=== PATIENT | female | born 1975 | race African-American/Black ===

== ENCOUNTER 2018-04-23 06:46 | Inpatient (IN) ==
[2018-04-23] MEDS ORDERED: HEPARIN/NACL 0.9% 2 UNITS/ML 2,000 ML IV ONE (09:02)
[2018-04-23] MEDS ORDERED: DIAZEPAM 5 MG TABLET PO ONE (09:37)
[2018-04-23] MEDS ORDERED: MIDAZOLAM 2 MG/2 ML VIAL IV ONE (09:37)
[2018-04-23] MEDS ORDERED: fentaNYL 100 MCG/2 ML VIAL IV ONE (09:37)
[2018-04-23 09:56] LABS: Basophils % 0.7 % (0.0-0.8); Eosinophils # 0.1 10*3/uL (0.0-0.87); Eosinophils % 1.9 % (0.00-10.9); Hematocrit 33.9 VOL% (35.7-47.0); Hemoglobin 11.3 GM/DL (12.0-16.0); Immature Granulocytes % 0.7 %; Immature Granulocytes Absolute 0.03 #; Lymphocytes # 1.3 10*3/uL (1.4-4.0); Lymphocytes % 31.9 % (21.3-54.2); Mean Corpuscular HGB Conc 33.3 GM/DL (32-36); Mean Corpuscular Hemoglobin 26 PG (27-34); Mean Platelet Volume 11.4 FL (9.6-12.0); Monocytes # 0.4 10*3/uL (0.11-0.8); Monocytes % 8.3 % (1.7-12.7); Neutrophils # 2.4 10*3/uL (1.4-7.4); Neutrophils % 56.5 % (38.7-73.9); Platelet Count 137 T/CUMM (130-400); Red Blood Count 4.29 MC/CUMM (3.8-5.5); Red Cell Distribution Width 14.2 % (9.3-17.3); White Blood Count 4.2 T/CUMM (4-12)
[2018-04-23 10:09] LABS: PT Patient Result 10.8 SECS; Partial Thromboplastin Time 29.4 SECS (0-40)
[2018-04-23] MEDS ORDERED: DIAZEPAM 5 MG TABLET ONE (10:17)
[2018-04-23] MEDS: SODIUM CHLORIDE 0.45% 1,000 ML IV SCH (10:24)
[2018-04-23] MEDS ORDERED: fentaNYL 100 MCG/2 ML VIAL ONE (11:05)
[2018-04-23] MEDS ORDERED: MIDAZOLAM 2 MG/2 ML VIAL ONE (11:05)
[2018-04-23] MEDS ORDERED: KETOROLAC 30 MG/1 ML VIAL IV SCH (13:00)
[2018-04-23] MEDS ORDERED: PROMETHAZINE 25 MG/1 ML VIAL IM PRN (13:07)
[2018-04-23] MEDS ORDERED: CETIRIZINE 10 MG TABLET PO PRN (13:09)
[2018-04-23] MEDS ORDERED: ONDANSETRON 4 MG/2 ML VIAL ONE (13:10)
[2018-04-23] MEDS ORDERED: diphenhydrAMINE 50 MG/1 ML VIAL IV PRN (13:10)
[2018-04-23] MEDS ORDERED: MEPERIDINE 25 MG/1 ML VIAL ONE (13:10)
[2018-04-23] MEDS: MEPERIDINE 25 MG/1 ML VIAL IV PRN ×2 (13:15→19:24)
[2018-04-23] MEDS: ONDANSETRON 4 MG/2 ML VIAL IV PRN ×2 (13:17→21:32)
[2018-04-23] MEDS ORDERED: LABETALOL 100 MG/20 ML VIAL IV PRN (13:21)
[2018-04-23] MEDS ORDERED: MEPERIDINE 25 MG/1 ML VIAL IV ONE (13:53)
[2018-04-23] MEDS: GABAPENTIN 300 MG CAPSULE PO SCH (14:02)
[2018-04-23] MEDS: PANTOPRAZOLE 40 MG TABLET PO SCH (18:19)
[2018-04-23] MEDS: SODIUM CHLORIDE 0.9% 1,000 ML IV SCH (18:31)
[2018-04-23] MEDS: LEVOFLOXACIN INJ 500 MG in PREMIX 1 EACH IV SCH (18:32)
[2018-04-23] MEDS: ACETAMINOPHEN 325 MG TABLET PO SCH (19:30)
[2018-04-24] MEDS: MEPERIDINE 25 MG/1 ML VIAL IV PRN ×2 (01:06→06:35)
[2018-04-24] MEDS: ONDANSETRON 4 MG/2 ML VIAL IV PRN ×2 (01:15→06:34)
[2018-04-24] MEDS: ACETAMINOPHEN 325 MG TABLET PO SCH ×5 (03:41→21:57)
[2018-04-24] MEDS: SODIUM CHLORIDE 0.9% 1,000 ML IV SCH ×2 (03:42→21:59)
[2018-04-24] MEDS: LEVOTHYROXINE 175 MCG TABLET PO SCH (06:36)
[2018-04-24 07:36] LABS: Basophils % 0.1 % (0.0-0.8); Eosinophils % 0.1 % (0.00-10.9); Hematocrit 32.2 VOL% (35.7-47.0); Hemoglobin 10.8 GM/DL (12.0-16.0); Immature Granulocytes % 0.3 %; Immature Granulocytes Absolute 0.02 #; Lymphocytes # 0.7 10*3/uL (1.4-4.0); Lymphocytes % 9.8 % (21.3-54.2); Mean Corpuscular HGB Conc 33.5 GM/DL (32-36); Mean Corpuscular Hemoglobin 26 PG (27-34); Mean Platelet Volume 12.4 FL (9.6-12.0); Monocytes # 0.5 10*3/uL (0.11-0.8); Monocytes % 7.3 % (1.7-12.7); Neutrophils # 5.8 10*3/uL (1.4-7.4); Neutrophils % 82.4 % (38.7-73.9); Platelet Count 141 T/CUMM (130-400); Red Blood Count 4.13 MC/CUMM (3.8-5.5)
[2018-04-24 08:04] LABS: Calcium 7.4 MG/DL (8.5-10.1); Osmolality,Calculated 271.8 MOS/KG (273-304); Potassium 3.1 MMOL/L (3.5-5.1)
[2018-04-24] MEDS ORDERED: ESCITALOPRAM 10 MG TABLET PO SCH ×2 (09:00→21:00)
[2018-04-24] MEDS: oxyCODONE/ACETAMINOPHEN 5-325 MG TABLET PO PRN ×3 (09:19→23:12)
[2018-04-24] MEDS: PANTOPRAZOLE 40 MG TABLET PO SCH (09:20)
[2018-04-24] MEDS: GABAPENTIN 300 MG CAPSULE PO SCH (09:20)
[2018-04-24] MEDS: DOCUSATE SODIUM 100 MG CAPSULE PO SCH ×2 (09:20→21:57)
[2018-04-24] MEDS: SODIUM CHLORIDE 0.45% 1,000 ML IV SCH (10:59)
[2018-04-24] MEDS: LEVOFLOXACIN INJ 500 MG in PREMIX 1 EACH IV SCH (17:40)
[2018-04-25] MEDS: ACETAMINOPHEN 325 MG TABLET PO SCH ×2 (03:22→06:30)
[2018-04-25] MEDS: SODIUM CHLORIDE 0.9% 1,000 ML IV SCH (06:27)
[2018-04-25] MEDS: LEVOTHYROXINE 175 MCG TABLET PO SCH (06:27)
[2018-04-25] MEDS ORDERED: POTASSIUM CHLORIDE 20 MEQ TABLET PO ONE (07:05)
[2018-04-25] MEDS: oxyCODONE/ACETAMINOPHEN 5-325 MG TABLET PO PRN (07:43)
[2018-04-25] MEDS: PANTOPRAZOLE 40 MG TABLET PO SCH (08:41)
[2018-04-25] MEDS: DOCUSATE SODIUM 100 MG CAPSULE PO SCH (08:41)
[2018-04-25] MEDS: GABAPENTIN 300 MG CAPSULE PO SCH (08:41)
[2018-04-25 12:00] VITALS: BP 119/74
== END 2018-04-25 14:17 | disposition home or self-care (01) | DRG 229 ==
LOC: N.RAD 06:46 → N.SDSINP 06:47 → N.5E 16:36
PROVIDERS: ADMIT Surgery; ATTEND Surgery

== ENCOUNTER 2021-04-27 06:32 | Inpatient (IN) ==
[2021-04-21 12:23] LABS: Basophils % 0.6 % (0.0-0.8); Eosinophils # 0.1 10*3/uL (0.0-0.87); Eosinophils % 2.1 % (0.00-10.9); Hematocrit 33.1 VOL% (35.7-47.0); Hemoglobin 10.8 GM/DL (12.0-16.0); Immature Granulocytes % 0.4 %; Immature Granulocytes Absolute 0.02 #; Lymphocytes # 1.5 10*3/uL (1.4-4.0); Lymphocytes % 31.5 % (21.3-54.2); Mean Corpuscular HGB Conc 32.6 GM/DL (32-36); Mean Corpuscular Volume 79.6 FL (87-102); Mean Platelet Volume 12.3 FL (9.6-12.0); Monocytes % 7.7 % (1.7-12.7); Neutrophils % 57.7 % (38.7-73.9); Platelet Count 106 T/CUMM (130-400); Red Blood Count 4.16 MC/CUMM (3.8-5.5); Red Cell Distribution Width 16.2 % (9.3-17.3); White Blood Count 4.7 T/CUMM (4-12)
[2021-04-21 12:39] LABS: Alanine Aminotransferase 10 U/L (13-56); Albumin 3.8 G/DL (3.4-5.0); Alkaline Phosphatase 119 U/L (45-117); Aspartate Amino Transferase 7 U/L (0-37); Bilirubin,Total < 0.39 MG/DL (0.2-1.0); Blood Urea Nitrogen 7 MG/DL (7-18); Calcium 8.2 MG/DL (8.5-10.1); Carbon Dioxide 28 MMOL/L (21-32); Estimated Glom Filtration Rate 80 ML/MIN; Glucose 84 MG/DL (74-106); Osmolality,Calculated 273.5 MOS/KG (273-304); Sodium 139 MMOL/L (136-145); Total Protein 7.3 G/DL (6.4-8.2)
[2021-04-21 13:15] LABS: Lymphocytes 41 % (20-55); Segmented Neutrophils 54 % (50-85); Total Cells Counted 100
[2021-04-21 13:16] LABS: Microcytosis 1+; Platelet Estimate Adequate
[2021-04-27] MEDS ORDERED: FAMOTIDINE 20 MG TABLET PO ONE (06:59)
[2021-04-27] MEDS ORDERED: LACTATED RINGERS 1,000 ML IV SCH (07:30)
[2021-04-27] MEDS ORDERED: DIAZEPAM 5 MG TABLET PO ONE (07:30)
[2021-04-27] MEDS ORDERED: SCOPOLAMINE 1.5 MG PATCH TRANSDERM ONE ×2 (07:30→07:39)
[2021-04-27] MEDS ORDERED: DIAZEPAM 5 MG TABLET ONE (07:39)
[2021-04-27] MEDS ORDERED: LIDOCAINE 1% 5 ML VIAL ONE (07:59)
[2021-04-27] MEDS ORDERED: DEXAMETHASONE 4 MG/1 ML VIAL ONE ×2 (07:59→12:55)
[2021-04-27] MEDS ORDERED: fentaNYL 100 MCG/2 ML VIAL ONE (07:59)
[2021-04-27] MEDS ORDERED: MIDAZOLAM 2 MG/2 ML VIAL ONE (07:59)
[2021-04-27] MEDS ORDERED: BUPIVACAINE MPF 0.25% 30 ML VIAL ONE (07:59)
[2021-04-27] MEDS ORDERED: BUPIVACAINE 0.5% 50 ML VIAL ONE (08:03)
[2021-04-27] MEDS ORDERED: LIDOCAINE 2% 5 ML VIAL ONE (09:25)
[2021-04-27] MEDS ORDERED: ROCURONIUM 50 MG/5 ML VIAL IV ONE (09:25)
[2021-04-27] MEDS ORDERED: propofoL 200 MG/20 ML VIAL IV ONE (09:25)
[2021-04-27] MEDS ORDERED: ONDANSETRON 4 MG/2 ML VIAL ONE (09:45)
[2021-04-27] MEDS ORDERED: PHENYLEPHRINE 10 MG/1 ML VIAL IV ONE ×2 (10:11→10:49)
[2021-04-27] MEDS ORDERED: NEOSTIGMINE 10 MG/10 ML VIAL ONE (12:23)
[2021-04-27] MEDS ORDERED: GLYCOPYRROLATE 0.4 MG/2 ML VIAL ONE ×2 (12:23→12:56)
[2021-04-27] MEDS ORDERED: TISSUE ADHESIVE 1 EACH APPLICATOR TOP ONE ×2 (12:27→12:40)
[2021-04-27] MEDS ORDERED: ONDANSETRON 4 MG/2 ML VIAL IV PRN ×2 (12:43→13:23)
[2021-04-27] MEDS ORDERED: MORPHINE 4 MG/1 ML VIAL IV PRN (12:43)
[2021-04-27] MEDS ORDERED: CETIRIZINE 10 MG TABLET PO PRN (12:47)
[2021-04-27] MEDS ORDERED: NITROGLYCERIN SL 0.4 MG TABLET SL PRN (12:47)
[2021-04-27] MEDS ORDERED: SEVOFLURANE 1 UNIT/15 MINUTE INH ONE (12:54)
[2021-04-27] MEDS ORDERED: SODIUM CHLORIDE 0.9% 1,000 ML IV ONE (12:54)
[2021-04-27] MEDS ORDERED: LACTATED RINGERS 1,000 ML IV ONE (12:54)
[2021-04-27] MEDS ORDERED: ACETAMINOPHEN INJ 1,000 MG/100 ML VIAL IV ONE (12:55)
[2021-04-27] MEDS ORDERED: methylPREDNISolone SOD SUC 125 MG/2 ML VIAL ONE (12:55)
[2021-04-27 13:11] LABS: Bilirubin,Urine Negative (Negative); Blood, Urine Negative (Negative); Glucose,Urine (UA) Negative (Negative); Ketones,Urine Negative (Negative); Mucus,Urine Occasional /LPF (Occasional); Nitrite,Urine Negative (Negative); Protein,Urine Negative; RBC,Urine <1 /HPF (0-4); Urine Appearance CLEAR (Clear); Urine Color Straw (Yellow); Urine Specific Gravity 1.005 (1.001-1.035); Urine Urobilinogen < 2.0 EU/DL (0.2-1.0)
[2021-04-27] MEDS: HYDROmorphone 2 MG/1 ML VIAL IV PRN ×4 (13:36→20:50)
[2021-04-27 13:49] LABS: Hemoglobin 11.7 GM/DL (12.0-16.0)
[2021-04-27] MEDS: LACTATED RINGERS 1,000 ML IV SCH ×2 (13:52→20:48)
[2021-04-27] MEDS: THEOPHYLLINE ER 300 MG TABLET PO SCH (15:45)
[2021-04-27 21:56] LABS: Hematocrit 32.2 VOL% (35.7-47.0); Hemoglobin 10.5 GM/DL (12.0-16.0)
[2021-04-28] MEDS: HYDROmorphone 2 MG/1 ML VIAL IV PRN ×6 (00:34→19:36)
[2021-04-28] MEDS: THEOPHYLLINE ER 300 MG TABLET PO SCH ×2 (02:18→16:46)
[2021-04-28 04:50] LABS: Hematocrit 30.6 VOL% (35.7-47.0); Hemoglobin 10.1 GM/DL (12.0-16.0)
[2021-04-28 04:55] LABS: Hematocrit 31.1 VOL% (35.7-47.0); Immature Granulocytes % 0.3 %; Immature Granulocytes Absolute 0.02 #; Lymphocytes # 0.9 10*3/uL (1.4-4.0); Lymphocytes % 11.2 % (21.3-54.2); Mean Corpuscular HGB Conc 32.2 GM/DL (32-36); Mean Corpuscular Volume 79.5 FL (87-102); Mean Platelet Volume 12.1 FL (9.6-12.0); Monocytes % 6.3 % (1.7-12.7); Neutrophils % 82.2 % (38.7-73.9); Platelet Count 117 T/CUMM (130-400); Red Blood Count 3.91 MC/CUMM (3.8-5.5); White Blood Count 7.7 T/CUMM (4-12)
[2021-04-28 05:16] LABS: Albumin 3.2 G/DL (3.4-5.0); Bilirubin,Total 0.6 MG/DL (0.2-1.0); Calcium 7.5 MG/DL (8.5-10.1); Osmolality,Calculated 272.8 MOS/KG (273-304); Potassium 4.3 MMOL/L (3.5-5.1); Total Protein 6.9 G/DL (6.4-8.2)
[2021-04-28] MEDS: LACTATED RINGERS 1,000 ML IV SCH ×2 (05:33→22:11)
[2021-04-28] MEDS: LEVOTHYROXINE 150 MCG TABLET PO SCH (05:49)
[2021-04-28] MEDS: FLUTICASONE 50 MCG NASAL SPRAY 16 GM BOTTLE BOTH NARES SCH (09:03)
[2021-04-28] MEDS: GABAPENTIN 300 MG CAPSULE PO SCH (09:05)
[2021-04-28] MEDS: amLODIPine 5 MG TABLET PO SCH (09:05)
[2021-04-28] MEDS: PANTOPRAZOLE 40 MG TABLET PO SCH (09:05)
[2021-04-29] MEDS: HYDROmorphone 2 MG/1 ML VIAL IV PRN ×3 (01:05→12:55)
[2021-04-29] MEDS: THEOPHYLLINE ER 300 MG TABLET PO SCH ×2 (03:10→14:51)
[2021-04-29] MEDS: LEVOTHYROXINE 150 MCG TABLET PO SCH (06:14)
[2021-04-29 08:00] LABS: Basophils % 0.3 % (0.0-0.8); Eosinophils # 0.1 10*3/uL (0.0-0.87); Eosinophils % 0.5 % (0.00-10.9); Hemoglobin 9.9 GM/DL (12.0-16.0); Immature Granulocytes % 0.4 %; Immature Granulocytes Absolute 0.04 #; Lymphocytes # 1.1 10*3/uL (1.4-4.0); Lymphocytes % 10.3 % (21.3-54.2); Mean Corpuscular Volume 78.5 FL (87-102); Mean Platelet Volume 11.2 FL (9.6-12.0); Monocytes % 10.5 % (1.7-12.7); Platelet Count 161 T/CUMM (130-400); Red Blood Count 3.82 MC/CUMM (3.8-5.5); Red Cell Distribution Width 16.2 % (9.3-17.3); White Blood Count 10.2 T/CUMM (4-12)
[2021-04-29 08:18] LABS: Calcium 7.4 MG/DL (8.5-10.1); Osmolality,Calculated 273.7 MOS/KG (273-304); Potassium 3.8 MMOL/L (3.5-5.1)
[2021-04-29] MEDS: GABAPENTIN 300 MG CAPSULE PO SCH (09:24)
[2021-04-29] MEDS: amLODIPine 5 MG TABLET PO SCH (09:24)
[2021-04-29] MEDS: PANTOPRAZOLE 40 MG TABLET PO SCH (09:25)
[2021-04-29] MEDS: FLUTICASONE 50 MCG NASAL SPRAY 16 GM BOTTLE BOTH NARES SCH (09:26)
[2021-04-29] MEDS: LACTATED RINGERS 1,000 ML IV SCH (10:32)
[2021-04-29] MEDS: ENOXAPARIN 40 MG/0.4 ML SYRINGE SUBCUT SCH (11:38)
[2021-04-30] MEDS: THEOPHYLLINE ER 300 MG TABLET PO SCH ×2 (02:13→14:19)
[2021-04-30] MEDS: LEVOTHYROXINE 150 MCG TABLET PO SCH (05:53)
[2021-04-30 06:06] LABS: Basophils % 0.2 % (0.0-0.8); Eosinophils # 0.1 10*3/uL (0.0-0.87); Hematocrit 31.1 VOL% (35.7-47.0); Hemoglobin 9.9 GM/DL (12.0-16.0); Immature Granulocytes % 0.3 %; Immature Granulocytes Absolute 0.03 #; Lymphocytes # 1.5 10*3/uL (1.4-4.0); Lymphocytes % 16.2 % (21.3-54.2); Mean Corpuscular HGB Conc 31.8 GM/DL (32-36); Mean Corpuscular Volume 79.7 FL (87-102); Mean Platelet Volume 11.4 FL (9.6-12.0); Monocytes % 10.5 % (1.7-12.7); Neutrophils % 71.8 % (38.7-73.9); Platelet Count 230 T/CUMM (130-400); White Blood Count 9.2 T/CUMM (4-12)
[2021-04-30 06:20] LABS: Calcium 7.8 MG/DL (8.5-10.1); Osmolality,Calculated 279.3 MOS/KG (273-304); Potassium 3.6 MMOL/L (3.5-5.1)
[2021-04-30 06:39] LABS: Hypochromasia 1+; Platelet Estimate Normal
[2021-04-30] MEDS: amLODIPine 5 MG TABLET PO SCH (09:42)
[2021-04-30] MEDS: GABAPENTIN 300 MG CAPSULE PO SCH (09:42)
[2021-04-30] MEDS: PANTOPRAZOLE 40 MG TABLET PO SCH (09:42)
[2021-04-30] MEDS: FLUTICASONE 50 MCG NASAL SPRAY 16 GM BOTTLE BOTH NARES SCH (09:44)
[2021-04-30] MEDS: ENOXAPARIN 40 MG/0.4 ML SYRINGE SUBCUT SCH (12:46)
[2021-05-01] MEDS: THEOPHYLLINE ER 300 MG TABLET PO SCH (02:18)
[2021-05-01] MEDS: LEVOTHYROXINE 150 MCG TABLET PO SCH (05:50)
[2021-05-01] MEDS: amLODIPine 5 MG TABLET PO SCH (08:31)
[2021-05-01] MEDS: PANTOPRAZOLE 40 MG TABLET PO SCH (08:31)
[2021-05-01] MEDS: GABAPENTIN 300 MG CAPSULE PO SCH (08:31)
[2021-05-01] MEDS: FLUTICASONE 50 MCG NASAL SPRAY 16 GM BOTTLE BOTH NARES SCH (09:12)
[2021-05-01] MEDS: HYDROmorphone 2 MG/1 ML VIAL IV PRN (10:21)
[2021-05-01] MEDS ORDERED: PNEUMOCOCCAL VACCINE (13 VALENT) 0.5 ML SYRINGE IM ONE (11:00)
[2021-05-01] MEDS ORDERED: HAEMOPHILUS B CONJ VACCINE 0.5 ML/10 MCG VIAL IM ONE (11:00)
[2021-05-01 11:57] VITALS: BP 107/60
[2021-05-01] MEDS ORDERED: MENINGOCOCCAL VACCINE 0.5 ML VIAL IM ONE (12:12)
== END 2021-05-01 15:16 | disposition home or self-care (01) | DRG 650 ==
LOC: N.OR 06:32 → N.SDSINP 06:35 → N.4E 13:43
PROVIDERS: ADMIT Surgery; ATTEND Surgery